=== PATIENT | male | born 1950 | race Caucasian/White ===

== ENCOUNTER 2016-09-07 20:27 | Emergency (ER) | payer OTHER ==
[~2016-09-07] VITALS: Ht 172.7 cm; Wt 88.5 kg
[~2016-09-07 20:27] MED LIST: ASPIR-LOW81 MG PO; CLARITIN10 M3 PO; ENDOCET 5-3251 EACH PO; FOLIC ACID1 MG PO; LEVAQUIN500 MG PO; LIPITOR20 MG PO; LISINOPRIL; LOPRESSOR50 MG PO; MOTRIN800 MG PO; NICOTINE PATCH1 EAC2 TD; NOHOMEMEDS; PERCOCET 5/31 TABLET PO; THERAGRAN1 TABLET PO; TRAMADOL HCL50 MG PO; VIGAMOX 0.60 DROP/3 RIGHT EYE; VITAMIN B-1100 MG PO; [UNRECOGNIZED DRUG - OTHER]; arthritis
[2016-09-07 23:18] VITALS: BP 164/91
== END 2016-09-07 23:39 | disposition home or self-care (01) ==
LOC: EME 20:27
DX: M25.561 Pain in right knee (principal); M25.461 Effusion, right knee; Z04.1 Encounter for examination and observation following transport accident; M17.11 Unilateral primary osteoarthritis, right knee; I10 Essential (primary) hypertension; F17.200 Nicotine dependence, unspecified, uncomplicated
CPT/HCPCS: 73564; 99281; 99285